=== PATIENT | male | born 1965 | race Caucasian/White ===

== ENCOUNTER 2024-04-04 14:22 | Outpatient (AMB) | payer BC, SELFPAY ==
--- NOTE | 2024-04-04 14:27 | A.OFFPC_ITS ---
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 Allergies meperidine [From Demerol] Allergy (Severe, Verified 04/04/24 14:42) violently ill Medication List - Last Reconciled 04/04/24 by Haydee Charles PA-C atorvastatin 80 mg PO DAILY levothyroxine 75 mcg PO DAILY Tobacco use date assessed: 04/04/24 Fall risk assessment: No Falls in past year Last assessed Fall Risk: 04/04/24 Dental Screening Dental Screen Date: 04/04/24 Did you have a dental visit in the last 12 months?: Yes Did you have a dental problem in the last 6 months where you did not have access to dental care?: No Was dental information given to patient?: Patient has dentist HPI NPV HPI Details Patient is a 62-year-old male who presents today to [facility] care. He is transferring from [facility] and used to follow with Dr. Suero. He has a significant past medical history of hyperlipidemia, hypothyroidism, hx of melanoma. CV: Bp today in the office is 102/62. Cholesterol is controlled with lipitor 80 mg. Last LDL is 118, HDL 54, Trigs 97, total cholesterol 190. Father had [facility] at age of 47. Pt reports having stress tests and ekgs in the past. He states it was about 10 years ago. He denies any chest pain or sob. He reports being dx with hyperlipidemia at early age. He states that he finally started a statin about 5 years ago or so. He states that he has not excited about taking this and actually wants to come off of this. He has changed his diet significantly and now is vegan. He has gotten rid of all animal fats. He wants to check his cholesterol without this medication. Endo: He is on levothyroxine 75 mcg. Last TSH was WNL. Derm: follows with [facility] for melanoma and scc. Sees [facility] q 6 months. Colonoscopy: 2015- wnl due 2025 PSA: overdue [facility] Medical History (Updated 04/04/24 @ 15:25 by Haydee Charles PA-C) Vegan diet Family history of heart disease in male family member before age 55 Squamous cell carcinoma in situ Melanoma Hypothyroidism (acquired) Hyperlipidemia Social History (Updated 04/04/24 @ 14:44 by Bee Healy CMA) Housing: House Patient Tobacco Use Status: Former Tobacco user Years Smoked: college years e-Cigarette/Vaping Use: Never Used Second Hand Smoke Exposure: No service: Yes Current occupational status: employed Current occupation: [employer] Current occupational exposures/hazards: No Cognitive needs: No Hearing needs: No Vision needs: No Questionnaire PHQ-9 Over the last 2 weeks, how often have you been bothered by any of the following problems? 1. Little interest or pleasure in doing things: not at all 2. Feeling down, depressed, or hopeless: not at all 3. Trouble falling or staying asleep, or sleeping too much: not at all 4. Feeling tired or having little energy: not at all 5. Poor appetite or overeating: not at all 6. Feeling bad about yourself - or that you are a failure or have let yourself or your family down: not at all 7. Trouble concentrating on things, such as reading the newspaper or watching television: not at all 8. Moving or speaking so slowly that other people could have noticed. Or the opposite - being so fidgety or restless that you have been moving around a lot more than usual: not at all 9. Thoughts that you would be better off or of hurting yourself in some way: not at all Total score: 0 Depression Screening Interpretation: Negative Depression Screening Done: Yes 79957 - PHQ-9 Billing: Yes Source: Developed by Drs. Jenaro Verdugo, Sadia Wylie, Jean Marie May and colleagues, with an educational rosi from [employer]. AUDIT C Alcohol Use Questionnaire (AUDIT-C) 1. How often do you have a drink containing alcohol?: Monthly or less 2. How many drinks containing alcohol do you have on a typical day when you are drinking?: 1 or 2 3. How often do you have six or more drinks on one occasion?: Never Total Score: 1 BRENT-7 AMB Questionnaire BRENT-7 Date BRENT - 7 assessed: 04/04/24 Feeling nervous, anxious, or on edge: 0 = Not at all Not being able to stop or control worryin = Not at all Worrying too much about different things: 0 = Not at all Trouble relaxin = Not at all Being so restless that it is hard to sit still: 0 = Not at all Becoming easily annoyed or irritable: 0 = Not at all Feeling afraid as if something awful might happen: 0 = Not at all Total BRENT-7 score (0-4 normal; 5-9 mild; 10-14 moderate; 15-21 severe): 0 Source: Developed by Drs. Jenaro Verdugo, Sadia Wylie, Jean Marie May and colleagues, with an educational rosi from [employer]. BRENT-7 Assessment Billing BRENT-7 Assessment Tool: BRENT-7 Assessment 12587 Physical exam (Primary Care) Vital Signs: Last Vital Signs Temp 98.3 F 04/04/24 14:46 Pulse 59 04/04/24 14:46 Resp 14 04/04/24 14:46 BP 102/62 04/04/24 14:46 Pulse Ox 95 04/04/24 14:46 Oxygen Delivery Method Room Air 04/04/24 14:46 BMI result Body Mass Index 26.8 Tobacco/Smoking Status: Tobacco use Status Tobacco use date assessed 04/04/24 04/04/24 14:37 Patient Tobacco Use Status Never used Tobacco 04/04/24 14:44 e-Cigarette/Vaping Use Never Used 04/04/24 14:44 Depression Screening Interpretation: Negative Const Orientation/consciousness: patient oriented x3 HENMT Ears: hearing grossly normal bilaterally Neck Thyroid: Thyroid normal Lymphatic: no lymphadenopathy noted Resp Auscultation: clear to auscultation bilaterally Cardio Rate: regular rate Rhythm: regular rhythm Heart sounds: S1 normal heart sound present and S2 normal heart sound present GI Inspection: Yes normal to inspection Palpation (GI): Soft to palpation and Other GI palpation findings present (nontender, no cva tenderness) Auscultation: normoactive bowel sounds Rectal Exam - Male: Yes deferred Skin General skin exam: no rashes or lesions noted Neuro General: patient oriented x3, gait normal and no focal motor deficits Assessment and Plan Assessment & Plan (1) Hyperlipidemia: Code(s): E78.5 - Hyperlipidemia, unspecified Qualifiers: Hyperlipidemia type: mixed hyperlipidemia Qualified Code(s): E78.2 - Mixed hyperlipidemia Plan: Patient plans to stop his Lipitor. He is aware that having high cholesterol does put him at increased risk of a heart attack and stroke. He does have a family history of this. He wants to check his labs in a few months after being off of the statin. He states that he has done a lot of research on statins and it makes him nervous. We spent about 30 minutes today talking about statins in specific. He we will check his labs in 3 months. If still elevated we will restart statin. (2) Hypothyroidism (acquired): Code(s): E03.9 - Hypothyroidism, unspecified Plan: We will continue levothyroxine. Prescription refilled today. (3) Family history of heart disease in male family member before age 55: Code(s): Z82.49 - Family history of ischemic heart disease and other diseases of the circulatory system Plan: CT coronary arteries ordered. (4) Vegan diet: Code(s): Z78.9 - Other specified health status Plan: We will check labs. Plan Follow up in 6 months for CPE or sooner if needed. Patient understands and agrees with this plan. Orders: Orders Complete Blood Count Auto Diff Today E03.9 - Hypothyroidism, unspecified, E78.5 - Hyperlipidemia, unspecified Comprehensive [place]. Panel Fast Today E03.9 - Hypothyroidism, unspecified, E78.5 - Hyperlipidemia, unspecified Lipid Panel Today E03.9 - Hypothyroidism, unspecified, E78.5 - Hyperlipidemia, unspecified PSA, Ultra Sensitive Today E03.9 - Hypothyroidism, unspecified, E78.5 - Hyperlipidemia, unspecified, R06.09 - Other forms of dyspnea Vitamin B12 and Folate Today E03.9 - Hypothyroidism, unspecified, E78.5 - Hyperlipidemia, unspecified TSH reflex Free T4 Today E03.9 - Hypothyroidism, unspecified, E78.5 - Hyperlipidemia, unspecified CT Coronary Calcium Score Today E78.2 - Mixed hyperlipidemia, Z82.49 - Family history of ischemic heart disease and other diseases of the circulatory system Medications: New levothyroxine 75 mcg PO DAILY 90 tabs 3RF Coding Level of Care Code New Pt Level 3 (73899) Complex EM visit Add On G2211 Diagnoses Mixed hyperlipidemia E78.2 Hyperlipidemia type: mixed hyperlipidemia Hypothyroidism (acquired) E03.9 Family history of heart disease in male family member before age 55 Z82.49 Vegan diet Z78.9 Additional Codes BRENT-7 Assessment Billing - BRENT-7 Assessment Tool: BRENT-7 Assessment [id number] ([id number])
[2024-04-04 14:46] VITALS: BP 102/62; PULSE 59; RESP 14; TEMP 36.8; O2SAT 95; BMI 26.8
== END 2024-04-04 15:36 | disposition home or self-care (01) ==
PROVIDERS: PCP Physician Assistant; Visit Provider Physician Assistant
DX: E78.2 Mixed hyperlipidemia (principal); E03.9 Hypothyroidism, unspecified; Z82.49 Family history of ischemic heart disease and other diseases of the circulatory system; Z78.9 Other specified health status
CPT/HCPCS: 99204; G2211

== ENCOUNTER 2024-10-05 10:08 | Outpatient (AMB) | payer BC, SELFPAY ==
--- NOTE | 2024-10-05 10:12 | MHC.PC.OV ---
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 He is transferring from [facility] and used to follow with Dr. Suero. He has a significant past medical history of hyperlipidemia, hypothyroidism, hx of melanoma. CV: Bp today in the office is 110/76. He is managing his cholesterol with diet, exercise and [id number] supplements. His cholesterol he states it is currently very similar to when he was on 80 mg of atorvastatin. [facility] because he did have a CT calcium score and he has moderate amount of calcium buildup. He does have a family history of heart disease. Endo: He is on levothyroxine 75 mcg. Last TSH was WNL. Derm: follows with [facility] for melanoma and scc. Sees [facility] q 6 months. Colonoscopy: 2015- wnl due 2025 PSA: wnl [facility] Medical History (Updated 10/05/24 @ 10:50 by Haydee Charles PA-C) Vegan diet Family history of heart disease in male family member before age 55 Squamous cell carcinoma in situ Melanoma Hypothyroidism (acquired) Hyperlipidemia Family History Father Heart disease Heart attack Social History (Updated 10/05/24 @ 10:14 by Bee Helay CMA) Housing: House Alcohol intake: current Patient Tobacco Use Status: Former Tobacco user Years Smoked: college years e-Cigarette/Vaping Use: Never Used Second Hand Smoke Exposure: No Use of substances other than those prescribed or required for medical reasons: No service: Yes Current occupational status: employed Current occupation: [employer] Current occupational exposures/hazards: No Cognitive needs: No Hearing needs: No Vision needs: No Questionnaire PHQ-9 Over the last 2 weeks, how often have you been bothered by any of the following problems? 1. Little interest or pleasure in doing things: not at all 2. Feeling down, depressed, or hopeless: not at all 3. Trouble falling or staying asleep, or sleeping too much: not at all 4. Feeling tired or having little energy: not at all 5. Poor appetite or overeating: not at all 6. Feeling bad about yourself - or that you are a failure or have let yourself or your family down: not at all 7. Trouble concentrating on things, such as reading the newspaper or watching television: not at all 8. Moving or speaking so slowly that other people could have noticed. Or the opposite - being so fidgety or restless that you have been moving around a lot more than usual: not at all 9. Thoughts that you would be better off or of hurting yourself in some way: not at all Total score: 0 Depression Screening Interpretation: Negative Depression Screening Done: Yes 46124 - PHQ-9 Billing: Yes Source: Developed by Drs. Jenaro Verdugo, Sadia Wylie, Jea nMarie May and colleagues, with an educational rosi from [employer]. Thrive Questionnaire Date Thrive assessed: 09/28/24 I am a: Patient What is your living situation today?: I have a steady place to live Within the past 12 months, did the food you bought not last and you didn't have the money to get more?: Never true Within the past 12 months, did you worry whether your food would run out before you got money to buy more?: Never true Do you have trouble paying for medicines?: No Do you have trouble getting transportation to medical appointments?: No Do you have trouble paying your heating and electricity bill?: No Do you have trouble taking care of your child, family member or friend?: No Do you have trouble with day-to-day activities such as bathing, preparing meals, shopping, managing finances, etc.?: No Are you currently unemployed and looking for a job?: No Are you interested in more education?: No Please select the resources that you would like help with: None Currently or been in a relationship where the following occur: No concerns reported THRIVE Score: 0 AUDIT C Alcohol Use Questionnaire (AUDIT-C) 1. How often do you have a drink containing alcohol?: 2-3 times a week 2. How many drinks containing alcohol do you have on a typical day when you are drinking?: 1 or 2 3. How often do you have six or more drinks on one occasion?: Never Total Score: 3 BRENT-7 AMB Questionnaire BRENT-7 Date BRENT - 7 assessed: 10/05/24 Feeling nervous, anxious, or on edge: 0 = Not at all Not being able to stop or control worryin = Not at all Worrying too much about different things: 0 = Not at all Trouble relaxin = Not at all Being so restless that it is hard to sit still: 0 = Not at all Becoming easily annoyed or irritable: 0 = Not at all Feeling afraid as if something awful might happen: 0 = Not at all Total BRENT-7 score (0-4 normal; 5-9 mild; 10-14 moderate; 15-21 severe): 0 Source: Developed by Drs. Jenaro Verdugo, Sadia Wylie, Jean Marie May and colleagues, with an educational rosi from [employer]. BRENT-7 Assessment Billing BRENT-7 Assessment Tool: BRENT-7 Assessment 39184 Physical exam (Primary Care) Vital Signs: Last Vital Signs Pulse 69 10/05/24 10:15 BP 110/76 10/05/24 10:15 Pulse Ox 97 10/05/24 10:15 Oxygen Delivery Method Room Air 10/05/24 10:15 BMI result Body Mass Index 26.8 Tobacco/Smoking Status: Tobacco use Status Tobacco use date assessed 04/04/24 10/05/24 10:17 Patient Tobacco Use Status Former Tobacco user 10/05/24 10:17 e-Cigarette/Vaping Use Never Used 10/05/24 10:17 PHQ-9: PHQ-9 Score PHQ-9: Total score 0 10/05/24 10:31 Depression Screening Interpretation: Negative Thrive Assessment: Date of Thrive Assessment Date Thrive assessed 09/28/24 10/05/24 10:17 Currently or been in a relationship where the following occur: No concerns reported Const Orientation/consciousness: patient oriented x3 HENMT Ears: hearing grossly normal bilaterally and TM's normal bilaterally General nose exam: No nasal polyps present Face and sinus: Yes sinuses nontender Mouth: Normal oral and palatal mucosa present Eyes Pupils: Equal, round and reactive pupils present EOM: EOMs intact bilaterally Neck Neck: Yes full ROM and Yes no lymphadenopathy Thyroid: Thyroid normal Chest Chest palpation & inspection: normal inspection of the chest Resp Auscultation: clear to auscultation bilaterally Cardio Rate: regular rate Rhythm: regular rhythm Heart sounds: S1 normal heart sound present and S2 normal heart sound present Peripheral pulses: Peripheral pulses 2+ throughout GI Other: Soft, nontender Auscultation: normal bowel sounds Rectal Exam - Male: Yes deferred General: Yes no CVA tenderness Back/Spine/Pelvis Other: Nontender Back: no CVA tenderness Skin General skin exam: no rashes or lesions noted Neuro General: patient oriented x3, gait normal, CN's II-XI intact bilaterally and deep tendon reflexes 2+ bilaterally Cranial nerves: Yes Equal, round and reactive pupils present Motor exam (neuro): 5/5 motor strength present throughout Sensory Exam: double simultaneous stimulation for sensation normal Coordination: [id number] test normal and Romberg test negative Extrem General: Yes normal to inspection and Yes full ROM Psych Affect: normal affect Attitude: cooperative Thought process: Normal thought process present Thought content: Normal thought content present Insight: Good insight present (Psych) Judgement: Good judgement present (Psych) Coding Level of Care Code Est Pt Prev Care 40-64y(36828) Diagnoses Routine general medical examination at a health care facility Z00.00 Mixed hyperlipidemia E78.2 Hyperlipidemia type: mixed hyperlipidemia Family history of heart disease in male family member before age 55 Z82.49 Elevated LFTs R79.89 Additional Codes BRENT-7 Assessment Billing - BRENT-7 Assessment Tool: BRENT-7 Assessment 84869 ([id number]) PHQ-9 - 71921 - PHQ-9 Billing: Yes ([id number]) Assessment & Plan Assessment & Plan (1) Routine general medical examination at a health care facility: Code(s): Z00.00 - Encounter for general adult medical examination without abnormal findings Plan: Health maintenance reviewed. Labs reviewed with patient. (2) Hyperlipidemia: Code(s): E78.5 - Hyperlipidemia, unspecified Category: Medical Qualifiers: Hyperlipidemia type: mixed hyperlipidemia Qualified Code(s): E78.2 - Mixed hyperlipidemia Plan: Continue diet and lifestyle modifications. We did discuss adding back a statin given his family history but he wants to hold off on this until he sees Cardiology. (3) Family history of heart disease in male family member before age 55: Code(s): Z82.49 - Family history of ischemic heart disease and other diseases of the circulatory system Category: Medical Plan: As above. Asymptomatic (4) Elevated LFTs: Code(s): R79.89 - Other specified abnormal findings of blood chemistry Category: Medical Plan: Last LFTs were just outside the normal range. We will recheck. Orders: Orders Liver Panel Today E78.2 - Mixed hyperlipidemia, R79.89 - Other specified abnormal findings of blood chemistry, Z82.49 - Family history of ischemic heart disease and other diseases of the circulatory system Basic Metabolic Panel Today E78.2 - Mixed hyperlipidemia, R79.89 - Other specified abnormal findings of blood chemistry, Z82.49 - Family history of ischemic heart disease and other diseases of the circulatory system Medications: Refilled levothyroxine 75 mcg PO DAILY 90 tabs 3RF
[2024-10-05 10:15] VITALS: BP 110/76; PULSE 69; O2SAT 97; BMI 26.8
== END 2024-10-05 10:59 | disposition home or self-care (01) ==
PROVIDERS: PCP Physician Assistant; Visit Provider Physician Assistant
DX: Z00.00 Encounter for general adult medical examination without abnormal findings (principal); E78.2 Mixed hyperlipidemia; Z82.49 Family history of ischemic heart disease and other diseases of the circulatory system; R79.89 Other specified abnormal findings of blood chemistry

== ENCOUNTER → 2024-10-05 10:08 | Outpatient (BNVA) | payer BC, SELFPAY | PROVIDERS: PCP Physician Assistant; Visit Provider Physician Assistant | DX: Z00.00 Encounter for general adult medical examination without abnormal findings (principal); E78.2 Mixed hyperlipidemia; R79.89 Other specified abnormal findings of blood chemistry; Z82.49 Family history of ischemic heart disease and other diseases of the circulatory system | CPT/HCPCS: 96127 ==